=== PATIENT | male | born 1950 | race Caucasian/White ===

== ENCOUNTER 2018-01-07 16:44 | Inpatient (IN) | payer MEDICARE ==
[~2018-01-07] VITALS: Ht 162.6 cm; Wt 93.5 kg
[2018-01-07] VITALS (8 sets, daily range): BP systolic 117–204; BP diastolic 69–94; PULSE 80–91; RESP 15–20; TEMP 98.2–98.7; O2SAT 94–99
[2018-01-07] MEDS ORDERED: PLAV75TA29 PO (17:25)
[2018-01-07] MEDS ORDERED: METO25TA3 PO (17:25)
[2018-01-07] MEDS ORDERED: LIPI80TA PO (17:25)
--- NOTE | 2018-01-07 17:36 | RADRPT ---
EXAM DATE: 01/07/2018 5:22 PM EDT AGE/SEX: 67 years / Male INDICATIONS: Chest pain. CLINICAL DATA: This is the patient's initial encounter. Patient reports that signs and symptoms have been present for 1 day and indicates a pain score of 3/10. MEDICAL/SURGICAL HISTORY: None. None. None. COMPARISON: No prior exams available for comparison. FINDINGS: A single AP view of the chest demonstrates the lungs to be symmetrically aerated without evidence of mass, infiltrate or effusion. The cardiomediastinal contours are unremarkable. Osseous structures a re intact. CONCLUSION: No acute cardiopulmonary process. Electronically signed by: Nuno Sharpe MD 01/07/2018 5:35 PM EDT
--- NOTE | 2018-01-07 17:43 | PD ---
HPI Chief Complaint: Chest Pain Time Seen by Provider: 17:25 Travel History International Travel<30 days: No Contact w/Intl Traveler<30days: No Traveled to known affect area: No History of Present Illness HPI 67 years old male complains of chest pain. Patient states that he has intermittent chest discomfort substernally and across the anterior chest for the past few months. Patient states that he has increasing discomfort for the past 2 days. Patient states that the chest discomfort started this morning and lasted all day. Patient states that he took aspirin 325 mg today. Patient states that the chest discomfort is better now. Patient states that the chest discomfort is substernal chest pressure with radiation across the anterior chest down to both arms and upper back. Patient denies nausea diaphoresis. Patient denies palpitation. Patient has history of CAD status post stent placement 6 around 2007. Patient also has history hypertension, hyperlipidemia. Patient quit smoking in 2007. Patient was seen by local commercial litigation associate Dr. Gann in September 2017. Patient had chemical stress test done at that time which was normal. Patient states that the chest discomfort is not associate with exertion. Patient denies any coughing congestion fever chills. PFSH Past Medical History Hx Anticoagulant Therapy: Yes Cardiac Catheterization: Yes Cardiovascular Problems: Yes High Cholesterol: Yes Coronary Artery Disease: Yes Diabetes: No Patient Takes Glucophage: No Diminished Hearing: No Hypertension: Yes Tetanus Vaccination: Never Vaccinated Influenza Vaccination: No Past Surgical History Coronary Stent: Yes ( -2007) Social History Alcohol Use: Yes (RARELY) Tobacco Use: No (QUIT 2007) Substance Use: No Allergies-Medications (Allergen,Severity, Reaction): Coded Allergies: No Known Allergies (Unverified , 01/07/18) Reported Meds & Prescriptions Reported Meds & Active Scripts Active Reported Lipitor (Atorvastatin Calcium) 80 Mg Tab 80 Mg PO HS Metoprolol Tartrate 25 Mg Tab 25 Mg PO BID Plavix (Clopidogrel Bisulfate) 75 Mg Tab 75 Mg PO DAILY Review of Systems General / Constitutional: No: Fever Eyes: No: Visual changes HENT: No: Headaches Cardiovascular: Positive: Chest Pain or Discomfort Respiratory: No: Shortness of Breath Gastrointestinal: No: Abdominal Pain Genitourinary: No: Dysuria Musculoskeletal: No: Pain Skin: No Rash Neurologic: No: Weakness Psychiatric: No: Depression Endocrine: No: Polydipsia Hematologic/Lymphatic: No: Easy Bruising Physical Exam Narrative GENERAL: Well-nourished, well-developed patient. SKIN: Focused skin assessment warm/dry. HEAD: Normocephalic. EYES: No scleral icterus. No injection or drainage. NECK: Supple, trachea midline. No JVD or lymphadenopathy. CARDIOVASCULAR: Regular rate and rhythm without murmurs, gallops, or rubs. RESPIRATORY: Breath sounds equal bilaterally. No accessory muscle use. GASTROINTESTINAL: Abdomen soft, non-tender, nondistended. MUSCULOSKELETAL: No cyanosis, or edema. BACK: Nontender without obvious deformity. No CVA tenderness. Neurologic exam normal. Data Data Last Documented VS Vital Signs Date Time Temp Pulse Resp B/P (MAP) Pulse Ox O2 Delivery O2 Flow Rate FiO2 01/07/18 17:28 Room Air 01/07/18 17:26 97 2.00 01/07/18 17:15 81 18 173/85 (114) 01/07/18 16:46 98.2 Orders Orders Electrocardiogram (01/07/18 16:57) Complete Blood Count With Diff (01/07/18 16:57) Basic Metabolic Panel (Bmp) (01/07/18 16:57) Ckmb (Isoenzyme) Profile (01/07/18 16:57) Troponin I (01/07/18 16:57) Chest, Single Ap (01/07/18 16:57) Iv Access Insert/Monitor (01/07/18 16:57) Ecg Monitoring (01/07/18 16:57) Oxygen Administration (01/07/18 16:57) Oximetry (01/07/18 16:57) Labs Laboratory Tests Test 01/07/18 17:40 White Blood Count 11.2 TH/MM3 Red Blood Count 4.66 MIL/MM3 Hemoglobin 15.0 GM/DL Hematocrit 43.1 % Mean Corpuscular Volume 92.5 FL Mean Corpuscular Hemoglobin 32.2 PG Mean Corpuscular Hemoglobin Concent 34.8 % Red Cell Distribution Width 12.8 % Platelet Count 285 TH/MM3 Mean Platelet Volume 7.4 FL Neutrophils (%) (Auto) 79.3 % Lymphocytes (%) (Auto) 11.8 % Monocytes (%) (Auto) 8.1 % Eosinophils (%) (Auto) 0.4 % Basophils (%) (Auto) 0.4 % Neutrophils # (Auto) 8.9 TH/MM3 Lymphocytes # (Auto) 1.3 TH/MM3 Monocytes # (Auto) 0.9 TH/MM3 Eosinophils # (Auto) 0.0 TH/MM3 Basophils # (Auto) 0.0 TH/MM3 CBC Comment DIFF FINAL Differential Comment Blood Urea Nitrogen 9 MG/DL Creatinine 0.86 MG/DL Random Glucose 131 MG/DL Calcium Level 9.0 MG/DL Sodium Level 141 MEQ/L Potassium Level 4.0 MEQ/L Chloride Level 107 MEQ/L Carbon Dioxide Level 25.6 MEQ/L Anion Gap 8 MEQ/L Estimat Glomerular Filtration Rate 89 ML/MIN Total Creatine Kinase 62 U/L Troponin I LESS THAN 0.02 NG/ML MDM Medical Decision Making Medical Screen Exam Complete: Yes Emergency Medical Condition: Yes Interpretation(s) Last Impressions Chest X-Ray 01/07/18 1657 Signed Impressions: CONCLUSION: No acute cardiopulmonary process. 1834 PM. CBC within normal limits. BMP within normal limits. Cardiac enzymes are normal. Differential Diagnosis Differential diagnosis including angina, ME, PE, pneumothorax. Narrative Course 67 years old male with chest pain. History of CAD. Marvel Bruner MD Jan 07, 2018 17:43
[2018-01-07 18:01] LABS: AUTOMATED NEUTROPHIL # 8.9 TH/MM3 (1.8-7.7); BASOPHIL % 0.4 % (0.0-2.0); EOSINOPHIL % 0.4 % (0.0-4.0); HEMATOCRIT 43.1 % (39.0-51.0); LYMPH % 11.8 % (9.0-44.0); LYMPHOCYTE # 1.3 TH/MM3 (1.0-4.8); MEAN CELL VOLUME 92.5 FL (80.0-100.0); MEAN CORPUSCULAR HEMOGLOBIN 32.2 PG (27.0-34.0); MEAN CORPUSCULAR HGB CONC 34.8 % (32.0-36.0); MEAN PLATELET VOLUME 7.4 FL (7.0-11.0); MONO % 8.1 % (0.0-8.0); MONOCYTE # 0.9 TH/MM3 (0-0.9); NEUT % 79.3 % (16.0-70.0); PLATELET COUNT 285 TH/MM3 (150-450); RED BLOOD COUNT 4.66 MIL/MM3 (4.50-5.90); RED CELL DISTRIBUTION WIDTH 12.8 % (11.6-17.2); WHITE BLOOD COUNT 11.2 TH/MM3 (4.0-11.0)
[2018-01-07 18:24] LABS: BICARBONATE 25.6 MEQ/L (21.0-32.0); BLOOD UREA NITROGEN 9 MG/DL (7-18); CHLORIDE 107 MEQ/L (98-107); CREATININE 0.86 MG/DL (0.60-1.30); GLOMERULAR FILTRATION RATE 89 ML/MIN (>89); GLUCOSE,RANDOM 131 MG/DL (74-106); SODIUM (NA) 141 MEQ/L (136-145)
[2018-01-07 18:28] LABS: TROPONIN I LESS THAN 0.02 NG/ML (0.02-0.05)
[2018-01-07] MEDS ORDERED: HEPARIN SODIUM - IV 10,000 UNITS/10 ML VIAL IV ONE (19:00)
[2018-01-07] MEDS ORDERED: NITROGLYCERIN 2% OINT 1 GM PACKET TOPICAL ONE (19:00)
[2018-01-07] MEDS: HEPARIN-D5W 25,000 U/250 ML 250 ML IV PRN (19:30)
[2018-01-07] MEDS ORDERED: BISACODYL 10 MG SUPP RECTAL PRN (20:15)
[2018-01-07] MEDS ORDERED: LACTULOSE SYRUP 20 GM/30 ML CUP PO PRN (20:15)
[2018-01-07] MEDS ORDERED: MAGNESIUM HYDROXIDE SUSP 30 ML CUP PO PRN (20:15)
[2018-01-07] MEDS ORDERED: SENNOSIDES 8.6 MG TAB PO PRN (20:15)
[2018-01-07] MEDS ORDERED: ACETAMINOPHEN 325 MG TAB PO PRN (20:15)
[2018-01-07] MEDS ORDERED: SODIUM CHLORIDE 0.9% FLUSH 10 ML FLUSH IV FLUSH PRN (20:15)
[2018-01-07] MEDS ORDERED: NALOXONE HCL 0.4 MG/ML AMP IV PUSH PRN (20:15)
[2018-01-07] MEDS ORDERED: ECASA81 PO (20:18)
--- NOTE | 2018-01-07 20:22 | HHI.HP ---
[facility] Service Family Medicine Primary Care Physician Nuno King MD Admission Diagnosis Chest pain Diagnoses: Chief Complaint: Chest pain/pressure International Travel<30 Days: No Contact w/Intl Traveler<30days: No Known Affected Area: No History of Present Illness 67-year-old male with past medical history of coronary artery disease status post stenting 6 in 2007 presenting with a 2 day history of chest pressure acutely increasing earlier this afternoon. Chest pressure is substernal, severe , radiating to the bilateral arms. Resolved with aspirin and Nitropaste given on route to ER and in the emergency room. No shortness of breath, lower extremity edema. Other than chest pressure, which is now resolved, he feels his usual state of health. (Iggy Calvin MD R2) Review of Systems Constitutional: DENIES: Fever, Chills Endocrine: DENIES: Heat/cold intolerance Eyes: DENIES: Vision loss Ears, nose, mouth, throat: DENIES: Throat pain, Ear Pain, Sinus Pain Respiratory: DENIES: Cough, Shortness of breath Cardiovascular: COMPLAINS OF: Chest pain, Dyspnea on Exertion, DENIES: Palpitations, Lower Extremity Edema Gastrointestinal: DENIES: Abdominal pain, Constipation, Diarrhea, Nausea, Vomiting Genitourinary: DENIES: Urinary frequency, Dysuria Musculoskeletal: DENIES: Joint pain, Muscle aches Integumentary: DENIES: Rash Hematologic/lymphatic: DENIES: Bruising Immunologic/allergic: DENIES: Eczema Neurologic: DENIES: Abnormal gait, Tremor Psychiatric: DENIES: Anxiety, Depression (Iggy Calvin MD R2) Past Family Social History Past Medical History CAD - s/p stenting x6 in 2007 Past Surgical History Tonsillectomy in childhood Reported Medications Reported Meds & Active Scripts Active Reported Aspirin DR (Aspirin) 81 Mg Tabdr 81 Mg PO DAILY Lipitor (Atorvastatin Calcium) 80 Mg Tab 80 Mg PO HS Metoprolol Tartrate 25 Mg Tab 25 Mg PO BID Plavix (Clopidogrel Bisulfate) 75 Mg Tab 75 Mg PO DAILY (Iggy Calvin MD R2) Allergies: Coded Allergies: No Known Allergies (Unverified , 01/07/18) Active Ordered Medications Current Medications Medications (Trade) Dose Ordered Sig/Shira Route Start Time Stop Time Status Last Admin Heparin Sodium/ Dextrose 250 ml @ 10 mls/hr TITRATE PRN IV 01/07/18 19:00 01/07/18 19:30 (NS Flush) 2 ml UNSCH PRN IV FLUSH 01/07/18 20:15 (NS Flush) 2 ml BID IV FLUSH 01/07/18 21:00 (Tylenol) 650 mg Q4H PRN PO 01/07/18 20:15 (Narcan Inj) 0.4 mg UNSCH PRN IV PUSH 01/07/18 20:15 (Rivka-Colace) 1 tab BID PO 01/07/18 21:00 (Milk Of Magnesia Liq) 30 ml Q12H PRN PO 01/07/18 20:15 (Senokot) 17.2 mg Q12H PRN PO 01/07/18 20:15 (Dulcolax Supp) 10 mg DAILY PRN RECTAL 01/07/18 20:15 (Lactulose Liq) 30 ml DAILY PRN PO 01/07/18 20:15 (Morphine Inj) 4 mg Q3H PRN IV PUSH 01/07/18 20:30 (Lipitor) 80 mg HS PO 01/07/18 21:00 (Plavix) 75 mg DAILY PO 01/08/18 09:00 (Lopressor) 25 mg BID PO 01/07/18 21:00 (Ecotrin Ec) 81 mg DAILY PO 01/08/18 09:00 Family History Non-contributory Social History Tob - Quit 2007; formerly 39 years of smoking 1 PPD Alc - None Drugs - none Served in the [place] Lives with (Iggy Calvin MD R2) Physical Exam Vital Signs Vital Signs Date Time Temp Pulse Resp B/P (MAP) Pulse Ox O2 Delivery O2 Flow Rate FiO2 01/07/18 19:12 80 18 175/84 (114) 97 Room Air 01/07/18 17:28 Room Air 01/07/18 17:26 97 Nasal Cannula 2.00 01/07/18 17:15 81 18 173/85 (114) 97 Room Air 01/07/18 16:46 98.2 80 15 204/94 (130) 97 Physical Exam GENERAL: WDWN adult white male, NAD SKIN: No rashes, ecchymoses or lesions. Cool and dry. HEAD: NC/AT EYES: PERRL. EOMI. No conjunctival injection or drainage. ENT: MMM, OP without erythema, tonsillar swelling, or exudate. NECK: Supple. No JVD. CARDIOVASCULAR: NRRR. Normal S1/S2. No MRG. No carotid bruit. RESPIRATORY: CTAB. No crackles or wheezes. GASTROINTESTINAL: Abdomen soft, non-distended, non-tender. No hepato- splenomegaly or palpable masses. MUSCULOSKELETAL: Extremities without clubbing, cyanosis, or edema. NEUROLOGICAL: Awake and alert. Cranial nerves II through XII grossly intact. Moves all extremities without difficulty. Normal speech. Laboratory Laboratory Tests Test 01/07/18 17:40 01/07/18 19:37 White Blood Count 11.2 Red Blood Count 4.66 Hemoglobin 15.0 Hematocrit 43.1 Mean Corpuscular Volume 92.5 Mean Corpuscular Hemoglobin 32.2 Mean Corpuscular Hemoglobin Concent 34.8 Red Cell Distribution Width 12.8 Platelet Count 285 Mean Platelet Volume 7.4 Neutrophils (%) (Auto) 79.3 Lymphocytes (%) (Auto) 11.8 Monocytes (%) (Auto) 8.1 Eosinophils (%) (Auto) 0.4 Basophils (%) (Auto) 0.4 Neutrophils # (Auto) 8.9 Lymphocytes # (Auto) 1.3 Monocytes # (Auto) 0.9 Eosinophils # (Auto) 0.0 Basophils # (Auto) 0.0 CBC Comment DIFF FINAL Differential Comment Blood Urea Nitrogen 9 Creatinine 0.86 Random Glucose 131 Calcium Level 9.0 Sodium Level 141 Potassium Level 4.0 Chloride Level 107 Carbon Dioxide Level 25.6 Anion Gap 8 Estimat Glomerular Filtration Rate 89 Total Creatine Kinase 62 Troponin I LESS THAN 0.02 Activated Partial Thromboplast Time 24.5 (Iggy Calvin MD R2) Result Diagram: 01/07/18 1740 01/07/18 1740 Imaging Last Impressions Chest X-Ray 01/07/18 1657 Signed Impressions: CONCLUSION: No acute cardiopulmonary process. (Iggy Calvin MD R2) Caprini VTE Risk Assessment Caprini VTE Risk Assessment: Mod/High Risk (score >= 2) (Iggy Calvin MD R2) Assessment and Plan Assessment and Plan 67 yo with h/o CAD presenting with: (Iggy Calvin MD R2) Attending Attestation THIS CASE WAS DISCUSSED WITH THE RESIDENT PHYSICIANS. I HAVE REVIEWED THE RECORD AND AGREE WITH THE ABOVE NOTE AND PLAN OF CARE WAS DISCUSSED. I HAVE AUTHORIZED THE ORDER FOR ADMISSION TO AN IN-PATIENT STATUS. (Ok Chand MD) Problem List: (1) Chest pain ICD Codes: R07.9 - Chest pain, unspecified Status: Acute Plan: CP likely unstable angina Initial troponin negative EKG = NSR, no ST-T wave changes -Cardiology consulted, appreciate recs (follows with [facility]) Trend troponin, EKG Heparin drip Likely cath in the morning -Nitro paste -Oxygen -Continue home ASA, Plavix, BB, statin -Check fasting glucose to r/o DM (2) CAD (coronary artery disease) ICD Codes: I25.10 - Atherosclerotic heart disease of [place] coronary artery without angina pectoris Plan: See above plan (3) FEN/PPX Plan: Fluids: PO only Elecs: Replete PRN Nutrition: Diet regular basic DVT: On heparin drip Code status: FULL CODE Dispo: Admit to inpatient. Pending cariology recs. Earliest tomorrow PM. (Iggy Calvin MD R2) Physician Certification 2 Midnight Certification Type: Admission for Inpatient Services Order for Inpatient Services The services are ordered in accordance with Medicare regulations or non- Medicare payer requirements, as applicable. In the case of services not specified as inpatient-only, they are appropriately provided as inpatient services in accordance with the 2-midnight benchmark. Estimated LOS (days): 2 days is the estimated time the patient will need to remain in the hospital, assuming treatment plan goals are met and no additional complications. Post-Hospital Plan: Home (Iggy Calvin MD R2) Problem Qualifiers (1) Chest pain: Qualified Codes: I20.0 - Unstable angina (2) CAD (coronary artery disease): Qualified Codes: I25.110 - Atherosclerotic heart disease of [place] coronary artery with unstable angina pectoris Iggy Calvin MD R2 Jan 07, 2018 20:21 Ok Chand MD Jan 09, 2018 09:37
[2018-01-07] MEDS: ATORVASTATIN 80 MG TAB PO SCH (21:35)
[2018-01-07] MEDS: METOPROLOL TARTRATE 25 MG TAB PO SCH (21:35)
[2018-01-07] MEDS: SODIUM CHLORIDE 0.9% FLUSH 10 ML FLUSH IV FLUSH SCH (21:35)
[2018-01-07] MEDS: DOCUSATE SODIUM 50 MG/SENNA 8.6 MG TAB PO SCH (21:35)
[2018-01-08] VITALS (28 sets, daily range): BP systolic 105–157; BP diastolic 51–84; PULSE 64–89; RESP 15–20; TEMP 98.2–99; O2SAT 80–96
[2018-01-08 02:26] LABS: TROPONIN I 0.18 NG/ML (0.02-0.05)
[2018-01-08] MEDS: METOPROLOL TARTRATE 25 MG TAB PO SCH ×2 (08:19→20:22)
[2018-01-08] MEDS: CLOPIDOGREL 75 MG TAB PO SCH (08:19)
[2018-01-08] MEDS: ASPIRIN EC 81 MG TABEC PO SCH (08:19)
[2018-01-08] MEDS: SODIUM CHLORIDE 0.9% FLUSH 10 ML FLUSH IV FLUSH SCH ×2 (08:20→20:22)
[2018-01-08] MEDS: DOCUSATE SODIUM 50 MG/SENNA 8.6 MG TAB PO SCH ×2 (08:22→20:22)
[2018-01-08] MEDS ORDERED: PNEUMOCOCCAL POLYVALENT INJ 25 MCG/0.5 ML SYR IM ONE (09:00)
[2018-01-08] MEDS ORDERED: INFLUENZA VIRUS VACCINE (QUADRIVALENT) 0.5 ML SYR IM ONE (09:00)
--- NOTE | 2018-01-08 09:32 | MB ---
cc: Carlitos Falcon MD DATE: 01/08/2018 REASON FOR CONSULTATION: Non-ST elevation myocardial infarction. HISTORY OF PRESENT ILLNESS: The patient is a very pleasant 67-year-old gentleman who sees my partner, Dr. Gann for a history of coronary artery disease with a history of 6 stents. The patient says his last catheterization was about 2009. The patient says in the past he has had some typical angina, though stable, that would bother him only during his exertional activities, but would be relieved at rest. Yesterday, he was moving to a different home and he began having chest pain during the move, but it persisted and actually increased once he had finished his move. He says at worst his pain was 7/10, which was quite a bit worse than usual for him. The pain was a pressure in his upper chest, radiating to his neck and back. He presented to the emergency department and was started on heparin and nitro paste, and he is feeling better with now only 0.5/10 chest discomfort. His initial troponin was negative, but it has slowly trended upwards. Again, currently he is essentially asymptomatic with only a trace of his initial chest pain. PAST MEDICAL HISTORY: Coronary artery disease, status post multiple prior stents (6 per patient). CURRENT MEDICATIONS: 1. Plavix 75 mg daily. 2. Aspirin 81 mg daily. 3. Lipitor 80 mg daily. 4. Lopressor 25 mg b.i.d. ALLERGIES: NO KNOWN DRUG ALLERGIES. PHYSICAL EXAMINATION: VITAL SIGNS: Afebrile, pulse 71, respiratory rate 20, BP 105/51, saturating 94% on room air. GENERAL: Pleasant, well-appearing gentleman in no distress. NECK: No JVD. LUNGS: Clear to auscultation bilaterally. CARDIOVASCULAR: Regular rate and rhythm. No murmurs appreciated. ABDOMEN: Benign. EXTREMITIES: No edema. LABORATORY DATA: Sodium 141, potassium 4.0, chloride 107, bicarbonate 25.6, BUN 9, creatinine 0.86, glucose 131. Troponin 0.020, 0.080, 0.18. White count of 11.2, hematocrit 43.1, platelets 285. EKG shows sinus rhythm with no acute ST or T-wave changes. IMPRESSION: Non-ST elevation myocardial infarction. The patient had quite classic unstable angina/acute coronary syndrome symptoms with a mildly elevated troponin. Given his notable coronary artery disease, he will require a cardiac catheterization and Dr. Gann should be available for this on Wednesday. In the meanwhile, I will medically treat him over the weekend. Should his clinical condition change and he become more unstable or his chest pain recur to any notable degree, this could be done on a more urgent basis. He is already on a heparin drip, aspirin, beta remington and statin. Plavix will be continued for now. Further recommendations based on his clinical course. Thank you again for the opportunity to participate in the patient's care. MD JEFF Padilla/FADIA , 09:09 AM , 09:31 AM
--- NOTE | 2018-01-08 12:57 | HHI.FPPN ---
Subjective Remarks Vitals are stable overnight. No acute events. On heparin drip. No current chest pain or shortness of breath. Plan for cath on Wednesday. (Melisa Moses MD R1) Objective Vitals Vital Signs Date Time Temp Pulse Resp B/P (MAP) Pulse Ox O2 Delivery O2 Flow Rate FiO2 01/08/18 12:00 78 01/08/18 11:00 98.3 73 18 132/71 (91) 96 01/08/18 11:00 74 01/08/18 10:00 78 01/08/18 09:00 70 01/08/18 09:00 64 01/08/18 08:00 74 01/08/18 08:00 67 01/08/18 07:00 98.2 81 18 138/69 (92) 95 01/08/18 07:00 75 01/08/18 06:00 71 01/08/18 05:00 74 01/08/18 04:08 94 01/08/18 04:00 78 01/08/18 03:00 75 01/08/18 03:00 98.4 83 20 105/51 (69) 92 01/08/18 02:00 74 01/08/18 01:00 75 01/08/18 00:00 80 01/07/18 23:59 81 01/07/18 23:43 98.7 87 20 117/70 (86) 94 01/07/18 23:41 86 18 121/69 (86) 97 Room Air 01/07/18 23:40 01/07/18 23:00 90 18 134/80 (98) 97 Room Air 01/07/18 21:47 91 18 146/80 (102) 99 Room Air 01/07/18 19:12 80 18 175/84 (114) 97 Room Air 01/07/18 17:28 Room Air 01/07/18 17:26 97 Nasal Cannula 2.00 01/07/18 17:15 81 18 173/85 (114) 97 Room Air 01/07/18 16:46 98.2 80 15 204/94 (130) 97 I/O 01/07/18 01/07/18 01/07/18 01/08/18 01/08/18 01/08/18 07:00 15:00 23:00 07:00 15:00 23:00 Intake Total 70 ml Balance 70 ml Intake Oral 0 ml IV Total 70 ml # Voids 0 # Bowel Movements 0 (Melisa Moses MD R1) Result Diagram: 01/07/18173901/07/181739 Objective Remarks O. CONSTITUTIONAL/GEN: Overweight white gentleman no acute distress. EYES: PERRLA, EOMI. ENT: Mouth and pharynx normal. NECK: thyroid midline. LUNGS: clear A-P, respiratory effort is normal. CARDIOVASCULAR: RR without murmur or gallop. GI/ABD: Soft, no distention. NEURO: No focal deficits. Gait is normal SKIN: color normal, no rashes noted. MUSC: Extremities are normal in appearance. PSYCH/MENTAL STATUS: Alert, cooperative, conversant. (Melisa Moses MD R1) A/P Assessment and Plan 67 yo with h/o CAD presenting with chest pain, admitted for suspicion of non-ST elevation OK. Cardiology consulted. Plan is to medically managed with heparin and undergo cardiac catheterization on Wednesday. Discharge Planning Discharge pending cardiology recommendations, after cardiac cath (Melisa Moses MD R1) Attending Attestation Patient seen and examined. Patient with known CAD presenting with substernal chest pain. Mild elevation of troponins. No significant EKG changes. Case reviewed and discussed with the resident team. Agree with plan of care as discussed with me and documented in the resident note. (Ok Chand MD) Problem List: (1) Chest pain ICD Codes: R07.9 - Chest pain, unspecified Status: Acute Plan: EKG shows no ST changes Troponin mildly elevated History of 12/26 and previous catheterization (2009), has typical angina Stable -Cardiology consulted, appreciate recs (follows with [facility]) -On heparin drip -Continue home ASA, Plavix, BB, statin (2) CAD (coronary artery disease) ICD Codes: I25.10 - Atherosclerotic heart disease of [place] coronary artery without angina pectoris Plan: See above plan (3) FEN/PPX Plan: Fluids: PO only Elecs: Replete PRN Nutrition: Diet regular basic DVT: On heparin drip (Melisa Moses MD R1) Problem Qualifiers (1) Chest pain: Qualified Codes: I20.0 - Unstable angina (2) CAD (coronary artery disease): Qualified Codes: I25.110 - Atherosclerotic heart disease of [place] coronary artery with unstable angina pectoris Melisa Moses MD R1 Jan 08, 2018 12:57 Ok Chand MD Jan 09, 2018 10:01
--- NOTE | 2018-01-08 15:12 | EKG ---
Date Performed: 01/07/2018 Time Performed: 17:00:22 PTAGE: 67 years EKG: Sinus rhythm POSSIBLE LEFT ATRIAL ENLARGEMENT POSSIBLE RIGHT VENTRICULAR CONDUCTION DELAY MINIMAL ST DEPRESSION B ORDERLINE ECG NO PREVIOUS TRACING DOCTOR: Aiden Camacho Interpretating Date/Time 01/10/2018 06:46:17
[2018-01-08] MEDS: HEPARIN-D5W 25,000 U/250 ML 250 ML IV PRN (17:45)
[2018-01-08] MEDS: MORPHINE SULFATE 4 MG/ML INJ IV PUSH PRN (17:50)
--- NOTE | 2018-01-08 17:54 | EKG ---
Date Performed: 01/08/2018 Time Performed: 01:35:54 PTAGE: 67 years EKG: Sinus rhythm Normal ECG PREVIOUS TRACING : 01/07/2018 21.44 Compared to previous tracing, left atrial abnormality resol poly. DOCTOR: Aiden Camacho Interpretating Date/Time 01/08/2018 17:52:37
--- NOTE | 2018-01-08 17:54 | EKG ---
Date Performed: 01/07/2018 Time Performed: 21:44:07 PTAGE: 67 years EKG: Sinus rhythm POSSIBLE LEFT ATRIAL ENLARGEMENT POSSIBLE RIGHT VENTRICULAR CONDUCTION DELAY BORDERLINE ECG ST jeff[place] es are slightly better from prior tracing. PREVIOUS TRACING : 01/07/2018 17.00 DOCTOR: Aiden Camacho Interpretating Date/Time 01/08/2018 17:51:55
[2018-01-08] MEDS: ATORVASTATIN 80 MG TAB PO SCH (20:22)
[2018-01-09] VITALS (28 sets, daily range): BP systolic 129–175; BP diastolic 70–91; PULSE 66–102; RESP 15–20; TEMP 98–98.6; O2SAT 93–95
[2018-01-09] MEDS: MORPHINE SULFATE 4 MG/ML INJ IV PUSH PRN ×3 (01:21→08:27)
[2018-01-09] MEDS: ASPIRIN EC 81 MG TABEC PO SCH (08:15)
[2018-01-09] MEDS: DOCUSATE SODIUM 50 MG/SENNA 8.6 MG TAB PO SCH ×2 (08:16→21:08)
[2018-01-09] MEDS: SODIUM CHLORIDE 0.9% FLUSH 10 ML FLUSH IV FLUSH SCH ×2 (08:16→21:00)
[2018-01-09] MEDS: METOPROLOL TARTRATE 25 MG TAB PO SCH ×2 (08:16→21:08)
[2018-01-09] MEDS: CLOPIDOGREL 75 MG TAB PO SCH (08:16)
--- NOTE | 2018-01-09 09:34 | PD.CARD.PN ---
Subjective Subjective Remarks pt still c/o cp off and on, relieved by ntg and/or morphine Objective Medications Current Medications Medications (Trade) Dose Ordered Sig/Shira Route Start Time Stop Time Status Last Admin Heparin Sodium/ Dextrose 250 ml @ 10 mls/hr TITRATE PRN IV 01/07/18 19:00 01/08/18 17:45 (NS Flush) 2 ml UNSCH PRN IV FLUSH 01/07/18 20:15 (NS Flush) 2 ml BID IV FLUSH 01/07/18 21:00 01/09/18 08:16 (Tylenol) 650 mg Q4H PRN PO 01/07/18 20:15 (Narcan Inj) 0.4 mg UNSCH PRN IV PUSH 01/07/18 20:15 (Rivka-Colace) 1 tab BID PO 01/07/18 21:00 01/09/18 08:16 (Milk Of Magnesia Liq) 30 ml Q12H PRN PO 01/07/18 20:15 (Senokot) 17.2 mg Q12H PRN PO 01/07/18 20:15 (Dulcolax Supp) 10 mg DAILY PRN RECTAL 01/07/18 20:15 (Lactulose Liq) 30 ml DAILY PRN PO 01/07/18 20:15 (Morphine Inj) 4 mg Q3H PRN IV PUSH 01/07/18 20:30 01/09/18 08:27 (Lipitor) 80 mg HS PO 01/07/18 21:00 01/08/18 20:22 (Plavix) 75 mg DAILY PO 01/08/18 09:00 01/09/18 08:16 (Lopressor) 25 mg BID PO 01/07/18 21:00 01/09/18 08:16 (Ecotrin Ec) 81 mg DAILY PO 01/08/18 09:00 01/09/18 08:15 Vital Signs / I&O Vital Signs Date Time Temp Pulse Resp B/P (MAP) Pulse Ox O2 Delivery O2 Flow Rate FiO2 01/09/18 08:32 18 01/09/18 08:15 98.0 80 18 154/81 (105) 93 01/09/18 08:00 96 01/09/18 07:04 68 01/09/18 06:30 74 01/09/18 05:00 74 01/09/18 04:13 84 01/09/18 04:00 129/83 (98) 01/09/18 03:16 98.6 77 15 162/84 (110) 94 01/09/18 03:00 68 01/09/18 02:00 66 01/09/18 01:00 76 01/09/18 00:00 74 01/08/18 23:29 98.8 78 15 146/84 (104) 94 01/08/18 23:00 73 01/08/18 22:00 70 01/08/18 21:00 76 01/08/18 20:55 21 01/08/18 20:00 80 01/08/18 19:17 99.0 80 18 157/73 (101) 94 01/08/18 19:00 75 01/08/18 18:00 82 01/08/18 17:00 85 01/08/18 16:00 79 01/08/18 15:02 98.3 72 18 131/72 (91) 95 01/08/18 15:00 70 01/08/18 14:00 89 01/08/18 13:00 71 01/08/18 12:00 78 01/08/18 11:00 98.3 73 18 132/71 (91) 96 01/08/18 11:00 74 01/08/18 10:00 78 I/O 01/08/18 01/08/18 01/08/18 01/09/18 01/09/18 01/09/18 07:00 15:00 23:00 07:00 15:00 23:00 Intake Total 70 ml 1432 ml 550 ml Output Total 975 ml 1100 ml Balance 70 ml 457 ml -550 ml Intake Oral 0 ml 1210 ml 550 ml IV Total 70 ml 222 ml Output Urine Total 975 ml 1100 ml # Voids 0 # Bowel Movements 0 0 Physical Exam GENERAL: This is a well-nourished, well-developed patient, in no apparent distress. CARDIOVASCULAR: Regular rate and rhythm without murmurs, gallops, or rubs. RESPIRATORY: Clear to auscultation. Breath sounds equal bilaterally. No wheezes , rales, or rhonchi. GASTROINTESTINAL: Abdomen soft, non-tender, nondistended. Normal active bowel sounds MUSCULOSKELETAL: Extremities without clubbing, cyanosis, or edema. NEURO: Alert & Oriented x4 to person, place, time, situation. Moves all ext x4 Laboratory Laboratory Tests Test 01/09/18 04:39 Activated Partial Thromboplast Time 46.7 SEC Imaging Last Impressions Chest X-Ray 01/07/18 1977 Signed Impressions: CONCLUSION: No acute cardiopulmonary process. Assessment and Plan Problem List: (1) Chest pain ICD Codes: R07.9 - Chest pain, unspecified Status: Acute Plan: on heparin ggt, added nitro ggt.; for cath tomorrow by Dr. rodriguez (2) CAD (coronary artery disease) ICD Codes: I25.10 - Atherosclerotic heart disease of [place] coronary artery without angina pectoris Plan: continue medical mgt. Problem Qualifiers (1) Chest pain: Qualified Codes: I20.0 - Unstable angina (2) CAD (coronary artery disease): Qualified Codes: I25.110 - Atherosclerotic heart disease of [place] coronary artery with unstable angina pectoris Carlitos Falcon MD Jan 09, 2018 09:34
[2018-01-09] MEDS ORDERED: NITROGLYCERIN-D5W 50 MG/250 ML 250 ML IV PRN (09:45)
--- NOTE | 2018-01-09 16:13 | HHI.FPPN ---
Subjective Remarks 67 yo with history of CAD admitted for ACS. Overnight had more chest pain worsened by exertion, incompletely relieved by morphine. NTG drip resumed, CP resolved. Today feels well. No current CP/SOB. Tolerating diet. (Iggy Calvin MD R2) Objective Vitals Vital Signs Date Time Temp Pulse Resp B/P (MAP) Pulse Ox O2 Delivery O2 Flow Rate FiO2 01/09/18 15:18 98.0 74 18 145/70 (95) 95 01/09/18 15:00 78 01/09/18 14:00 75 01/09/18 13:00 84 01/09/18 12:00 88 01/09/18 11:05 98.6 76 16 148/79 (102) 95 01/09/18 11:00 75 01/09/18 10:10 73 158/80 01/09/18 10:00 88 01/09/18 09:00 76 01/09/18 08:32 18 01/09/18 08:15 98.0 80 18 154/81 (105) 93 01/09/18 08:00 96 01/09/18 07:04 68 01/09/18 06:30 74 01/09/18 05:00 74 01/09/18 04:13 84 01/09/18 04:00 129/83 (98) 01/09/18 03:16 98.6 77 15 162/84 (110) 94 01/09/18 03:00 68 01/09/18 02:00 66 01/09/18 01:00 76 01/09/18 00:00 74 01/08/18 23:29 98.8 78 15 146/84 (104) 94 01/08/18 23:00 73 01/08/18 22:00 70 01/08/18 21:00 76 01/08/18 20:55 21 01/08/18 20:00 80 01/08/18 19:17 99.0 80 18 157/73 (101) 94 01/08/18 19:00 75 01/08/18 18:00 82 01/08/18 17:00 85 I/O 01/08/18 01/08/18 01/08/18 01/09/18 01/09/18 01/09/18 07:00 15:00 23:00 07:00 15:00 23:00 Intake Total 70 ml 1432 ml 550 ml Output Total 975 ml 1100 ml Balance 70 ml 457 ml -550 ml Intake Oral 0 ml 1210 ml 550 ml IV Total 70 ml 222 ml Output Urine Total 975 ml 1100 ml # Voids 0 # Bowel Movements 0 0 (Iggy Calvin MD R2) Result Diagram: 01/07/18 1740 01/07/18 1740 Objective Remarks CONSTITUTIONAL/GEN: Overweight white gentleman no acute distress. LUNGS: clear A-P, respiratory effort is normal. CARDIOVASCULAR: NRRR without murmur or gallop. GI/ABD: Soft, no distention. NEURO: Grossly non-focal SKIN: color normal, no rashes noted. MUSC: Extremities are normal in appearance. PSYCH/MENTAL STATUS: Alert, cooperative, conversant. (Iggy Calvin MD R2) A/P Assessment and Plan 67 yo with h/o CAD presenting with: (Iggy Calvin MD R2) Attending Attestation Case reviewed and discussed with the resident team. Agree with plan of care as discussed with me and documented in the resident note. (Ok Chand MD) Problem List: (1) ACS (acute coronary syndrome) ICD Codes: I24.9 - Acute ischemic heart disease, unspecified Plan: With troponin elevation, likely NSTEMI vs UA. In any case ACS diagnosis established Asymptomatic at present with no active chest pain EKG shows no ST-T wave changes TnI: < 0.02 --- 0.08 --- 0.18 History of 12/26 and previous catheterization (2009), had typical angina -Cardiology consulted, appreciate recs (follows with [facility]) -continue heparin drip, nitro drip -plan for cath on 01/10 -Continue home ASA, Plavix, BB, statin -Morphine PRN for chest pain (2) Chest pain ICD Codes: R07.9 - Chest pain, unspecified Status: Acute Plan: See above plan (3) CAD (coronary artery disease) ICD Codes: I25.10 - Atherosclerotic heart disease of [place] coronary artery without angina pectoris Plan: See above plan (4) FEN/PPX Plan: Fluids: PO only Elecs: Replete PRN Nutrition: Diet regular basic DVT: On heparin drip Dispo: Likely D/C home 01/10 or 01/11 depending on results of cath (Iggy Calvin MD R2) Problem Qualifiers (1) Chest pain: Qualified Codes: I20.0 - Unstable angina (2) CAD (coronary artery disease): Qualified Codes: I25.110 - Atherosclerotic heart disease of [place] coronary artery with unstable angina pectoris Iggy Calvin MD R2 Jan 09, 2018 16:13 Ok Chand MD Jan 09, 2018 18:26
[2018-01-09] MEDS: HEPARIN-D5W 25,000 U/250 ML 250 ML IV PRN (16:31)
[2018-01-09] MEDS: ATORVASTATIN 80 MG TAB PO SCH (21:08)
[2018-01-10] VITALS (25 sets, daily range): BP systolic 110–178; BP diastolic 66–85; PULSE 68–95; RESP 18; TEMP 98–98.9; O2SAT 94–98
[2018-01-10] MEDS: METOPROLOL TARTRATE 25 MG TAB PO SCH ×2 (08:21→20:19)
[2018-01-10] MEDS: SODIUM CHLORIDE 0.9% FLUSH 10 ML FLUSH IV FLUSH SCH ×2 (08:21→20:19)
[2018-01-10] MEDS: ASPIRIN EC 81 MG TABEC PO SCH (08:21)
[2018-01-10] MEDS: DOCUSATE SODIUM 50 MG/SENNA 8.6 MG TAB PO SCH ×2 (08:21→16:46)
[2018-01-10] MEDS ORDERED: LIDOCAINE HCL 1% PF 30 ML VIAL ONE (11:25)
[2018-01-10] MEDS ORDERED: HEPARIN-NS/PF INJ 1,000 ML ONE (11:26)
[2018-01-10] MEDS ORDERED: MIDAZOLAM HCL 2 MG/2 ML VIAL ONE (11:26)
[2018-01-10] MEDS ORDERED: NITROGLYCERIN INJ 5 ML ONE (11:26)
[2018-01-10] MEDS ORDERED: VERAPAMIL HCL 5 MG/2 ML VIAL ONE (11:26)
[2018-01-10] MEDS ORDERED: HEPARIN SODIUM - IV 10,000 UNITS/10 ML VIAL ONE (11:26)
[2018-01-10] MEDS ORDERED: CLOPIDOGREL 300 MG TAB ONE (12:11)
[2018-01-10] MEDS ORDERED: SODIUM CHLOR 0.9% 1000 ML INJ 1,000 ML IV SCH (12:31)
[2018-01-10] MEDS ORDERED: ONDANSETRON HCL 4 MG/2 ML VIAL IVP PRN (12:45)
[2018-01-10] MEDS ORDERED: MISC INFORMATION XX ONE (12:45)
[2018-01-10] MEDS ORDERED: IOHEXOL 350 MG/ML 50 ML BTL (for Cath Lab) OTHER ONE (13:13)
[2018-01-10] MEDS ORDERED: IOHEXOL 350 MG/ML 100 ML BTL (for Cath Lab) OTHER ONE (13:13)
--- NOTE | 2018-01-10 13:52 | HHI.FPPN ---
Subjective Remarks Vitals stable overnight Adequate intake and output Denies chest pain, shortness of breath, problems with urination/bowel movements Patient states that he is ready for cardiac cath today (Melisa Moses MD R1) Objective Vitals Vital Signs Date Time Temp Pulse Resp B/P (MAP) Pulse Ox O2 Delivery O2 Flow Rate FiO2 01/10/18 13:11 68 01/10/18 11:29 98.0 82 18 140/83 (102) 95 01/10/18 11:29 73 01/10/18 10:14 77 01/10/18 09:49 95 21 01/10/18 09:20 80 01/10/18 08:01 83 01/10/18 07:56 98.1 80 18 143/85 (104) 95 01/10/18 07:56 72 01/10/18 06:00 86 01/10/18 05:00 72 01/10/18 04:00 78 01/10/18 04:00 98.1 73 18 110/66 (81) 95 01/10/18 03:00 70 01/10/18 02:00 68 01/10/18 01:00 70 01/10/18 00:00 76 01/10/18 00:00 98.4 78 18 143/76 (98) 94 01/09/18 23:00 84 01/09/18 22:00 84 01/09/18 21:32 21 01/09/18 21:00 102 01/09/18 20:00 98.6 91 20 175/91 (119) 94 01/09/18 20:00 82 01/09/18 18:00 84 01/09/18 17:00 95 01/09/18 16:17 80 132/80 01/09/18 16:00 77 01/09/18 15:18 98.0 74 18 145/70 (95) 95 01/09/18 15:00 78 01/09/18 14:00 75 I/O 01/09/18 01/09/18 01/09/18 01/10/18 01/10/18 01/10/18 07:00 15:00 23:00 07:00 15:00 23:00 Intake Total 550 ml 720 ml 320 ml Output Total 1100 ml 675 ml 600 ml Balance -550 ml 45 ml -280 ml Intake Oral 550 ml 720 ml 320 ml Output Urine Total 1100 ml 675 ml 600 ml # Bowel Movements 0 (Melisa Moses MD R1) Result Diagram: 01/07/18 1740 01/07/18 174 Objective Remarks CONSTITUTIONAL/GEN: Overweight white gentleman no acute distress. LUNGS: clear A-P, respiratory effort is normal. CARDIOVASCULAR: NRRR without murmur or gallop. GI/ABD: Soft, no distention. NEURO: Grossly non-focal SKIN: color normal, no rashes noted. MUSC: Extremities are normal in appearance, no edema PSYCH/MENTAL STATUS: Alert, cooperative, conversant. (Melisa Moses MD R1) A/P Assessment and Plan 67 yo with h/o CAD presenting with: Discharge Planning Home tomorrow (Melisa Moses MD R1) Attending Attestation Case reviewed and discussed with the resident team. Agree with plan of care as discussed with me and documented in the resident note. (Ok Chand MD) Problem List: (1) ACS (acute coronary syndrome) ICD Codes: I24.9 - Acute ischemic heart disease, unspecified Plan: With troponin elevation, likely NSTEMI History of 12/26 and previous catheterization (2009), had typical angina -Cardiology consulted, appreciate recs (follows with [facility]) -on heparin drip, nitro drip -plan for cath today -Continue home ASA, Plavix, BB, statin (2) Chest pain ICD Codes: R07.9 - Chest pain, unspecified Status: Resolved Plan: See above plan (3) CAD (coronary artery disease) ICD Codes: I25.10 - Atherosclerotic heart disease of [place] coronary artery without angina pectoris Status: Chronic Plan: See above plan (4) FEN/PPX Plan: Fluids: PO only Elecs: Replete PRN Nutrition: Heart healthy diet DVT: Resume plavix tomorrow (Melisa Moses MD R1) Problem Qualifiers (1) Chest pain: Qualified Codes: I20.0 - Unstable angina (2) CAD (coronary artery disease): Qualified Codes: I25.110 - Atherosclerotic heart disease of [place] coronary artery with unstable angina pectoris Melisa Moses MD R1 Jan 10, 2018 13:52 Ok Chand MD Jan 11, 2018 07:36
--- NOTE | 2018-01-10 16:55 | ECHRPT ---
Indication: NSTEMI CONCLUSIONS Normal left ventricular size. Mild concentric left ventricular hypertrophy. The left ventricular systolic function is normal with an estimated ejection fraction in the range of 60-65% Moioh-vw-brpq mitral valve regurgitation. BP: / HR: Rhythm: Sinus MEASUREMENTS (Male / Female) Normal Values Technical Quality:Fair 2D ECHO LV Diastolic Diameter PLAX 4.1 cm 4.2 - 5.9 / 3.9 - 5.3 cm LV Systolic Diameter PLAX 2.9 cm IVS Diastolic Thickness 1.1 cm 0.6 - 1.0 / 0.6 - 0.9 cm LVPW Diastolic Thickness 1.1 cm 0.6 - 1.0 / 0.6 - 0.9 cm LV Relative Wall Thickness 0.5 RV Internal Dim ED PLAX 2.0 cm LVOT Diameter 2.0 cm Aortic Root Diameter 2.6 cm LA Systolic Diameter LX 2.9 cm 3.0 - 4.0 / 2.7 - 3.8 cm M-MODE AV Cusp Separation MM 1.7 cm DOPPLER AV Peak Velocity 123.0 cm/s AV Peak Gradient 6.1 mmHg AV Mean Gradient 3.0 mmHg AV Velocity Time Integral 21.0 cm LVOT Peak Velocity 102.0 cm/s LVOT Peak Gradient 4.2 mmHg LVOT Velocity Time Integral 16.9 cm AV Area Cont Eq vti 2.5 cm AV Area Cont Eq pk 2.6 cm Mitral E Point Velocity 87.4 cm/s Mitral A Point Velocity 88.8 cm/s Mitral E to A Ratio 1.0 LV E' Lateral Velocity 6.7 cm/s Mitral E to LV E' Lateral Ratio 13.0 LV E' Septal Velocity 6.2 cm/s Mitral E to LV E' Septal Ratio 14.0 PV Peak Velocity 81.2 cm/s PV Peak Gradient 2.6 mmHg FINDINGS LEFT VENTRICLE Normal left ventricular size. Mild concentric left ventricular hypertrophy. Normal LV systolic fx. RIGHT VENTRICLE Normal right ventricular size and systolic function. LEFT ATRIUM The left atrial size is normal. RIGHT ATRIUM The right atrial size is normal. ATRIAL SEPTUM No atrial level shunt is demonstrated by color flow Doppler interrogation. AORTA The aortic root and proximal ascending aorta are normal in size on limited imaging. MITRAL VALVE Ryjhd-tz-fmst mitral valve regurgitation. AORTIC VALVE No aortic valve stenosis or regurgitation. Joanne Casey MD, FACC (Electronically Signed) Final Date:10 January 2018 16:54
[2018-01-10] MEDS: ATORVASTATIN 80 MG TAB PO SCH (20:19)
[2018-01-11] VITALS (18 sets, daily range): BP systolic 135–146; BP diastolic 76–84; PULSE 67–85; RESP 16; TEMP 97.8–98.4; O2SAT 94–97
[2018-01-11 05:40] LABS: HEMOGLOBIN 14.4 GM/DL (13.0-17.0); MEAN CELL VOLUME 92.2 FL (80.0-100.0); MEAN CORPUSCULAR HEMOGLOBIN 31.6 PG (27.0-34.0); MEAN CORPUSCULAR HGB CONC 34.3 % (32.0-36.0); RED BLOOD COUNT 4.56 MIL/MM3 (4.50-5.90); WHITE BLOOD COUNT 10.1 TH/MM3 (4.0-11.0)
[2018-01-11 05:41] LABS: AUTOMATED NEUTROPHIL # 6.6 TH/MM3 (1.8-7.7); BASOPHIL # 0.1 TH/MM3 (0-0.2); BASOPHIL % 0.7 % (0.0-2.0); EOSINOPHIL # 0.2 TH/MM3 (0-0.4); LYMPH % 20.9 % (9.0-44.0); LYMPHOCYTE # 2.1 TH/MM3 (1.0-4.8); MEAN PLATELET VOLUME 7.6 FL (7.0-11.0); MONO % 11.3 % (0.0-8.0); MONOCYTE # 1.1 TH/MM3 (0-0.9); NEUT % 65.1 % (16.0-70.0); PLATELET COUNT 271 TH/MM3 (150-450); RED CELL DISTRIBUTION WIDTH 12.9 % (11.6-17.2)
[2018-01-11 05:57] LABS: CALCIUM 8.7 MG/DL (8.5-10.1); CREATININE 0.78 MG/DL (0.60-1.30)
--- NOTE | 2018-01-11 07:00 | MB ---
cc: Clarence Gann DO DATE: 01/10/2018 REASON FOR CONSULTATION: Consideration of cardiac catheterization. HISTORY OF PRESENT ILLNESS: Deshawn Dunlap is a pleasant 67-year-old male who I see in the office and presented to [facility] due to chest pain. He was originally seen in the office and underwent stress testing around 2-3 months ago, which was read as negative. Apparently around 2-3 days ago, he started getting acute chest pressure in the afternoon. This started originally with activity and then started coming on at rest. Chest pain was substernal and radiating to both arms. This is more significant then when he was seen in the office a few months ago. Because of that, he came to the emergency room. Chest pain seemed to go away somewhat with aspirin and nitro paste en route to the emergency room. Over the weekend, he did have some further chest pain and was placed on a heparin drip, as well as a nitroglycerin drip. In seeing him, he is currently hemodynamically stable without chest pain on a heparin and nitroglycerin drip. PAST MEDICAL HISTORY: Coronary artery disease. PAST SURGICAL HISTORY: 1. Six stents placed (2007), unknown coronary anatomy. 2. Tonsillectomy as a child. ALLERGIES: NO KNOWN DRUG ALLERGIES. MEDICATIONS: 1. Aspirin 81 mg daily. 2. Plavix 75 mg daily. 3. Lipitor 80 mg every night. 4. Metoprolol tartrate 25 mg b.i.d. FAMILY HISTORY: Denies premature coronary artery disease or sudden cardiac within the family. SOCIAL HISTORY: The patient previously smoked 1 pack a day for 39 years, quitting in 2007. Denies alcohol or drug abuse. REVIEW OF SYSTEMS: Fourteen systems were reviewed including osteopathic pertinent positives and negatives as above, otherwise negative. PHYSICAL EXAMINATION: VITAL SIGNS: Temperature 98.1, heart rate 80, blood pressure 143/85, respirations 18, pulse oximetry 95% on room air. GENERAL: The patient appears well, in no acute distress, alert, awake and oriented x 3. HEENT: Extraocular muscles intact. Mucous membranes moist. NECK: Supple. No JVD at 45 degrees. No carotid bruits heard bilaterally. Carotid upstroke is brisk in nature. HEART: Regular rate and rhythm. Positive for and second heart sounds with no murmurs, gallops, or rubs. LUNGS: Clear to auscultation bilaterally. No wheezes, rales or rhonchi. ABDOMEN: Soft, nontender, nondistended. No organomegaly noted. EXTREMITIES: Show no clubbing, cyanosis or edema. Femoral and distal pulses are intact bilaterally. NEUROLOGIC: No focal deficits. SKIN: Warm, dry and intact. OSTEOPATHIC: No kyphoscoliosis, lordosis or paraspinal tender points. LABORATORY DATA: Hemoglobin 15.0, hematocrit 43.1, platelets 285. Potassium 4.0, BUN 9, creatinine 0.86, troponin 0.18. Electrocardiogram (01/08/2018 at 0135): Sinus rhythm, nonspecific ST-T wave changes. IMPRESSIONS: 1. Non-ST elevation myocardial infarction. 2. Chest pain concerning for coronary insufficiency. 3. History of coronary artery disease with 6 stents placed to unknown coronary anatomy. RECOMMENDATIONS: 1. Mr. Dunlap presented with chest pain and was found to have an elevated troponin. Because of this, he will be recommended cardiac catheterization. 2. Risks, benefits, and alternatives have been explained to him and he consented as such. 3. He will continue on heparin and nitroglycerin drip until the time of his cardiac catheterization. 4. We will check a 2-D echo to look at his overall left ventricular function, cardiac structure and possible valvopathies. 5. Further recommendations will be made based on the hospital course. Thank you for allowing me to see Deshawn Dunlap. If there are any questions, please do not hesitate to call. Clarence Gann, DO VGP/DL , 09:43 PM , 06:59 AM
--- NOTE | 2018-01-11 07:12 | MA ---
cc: Clarence Gann DO DATE: 01/10/2018 PROCEDURE: 1. Left heart catheterization, coronary angiogram, moderate sedation 45 minutes, Thanh drug-eluting stent (2.75 x 30) to in-stent restenosis of RCA. PREPROCEDURE DIAGNOSIS: Chest pain, coronary artery disease, NSTEMI. POSTPROCEDURE DIAGNOSIS: 1. Coronary artery disease/NSTEMI status post Thanh drug-eluting stent (2.75 x 30). 2. In-stent restenosis of RCA. CONTRAST USED: 150 mL. FLUOROSCOPY TIME: 8.4 minutes. ANESTHESIA: Moderate sedation 45 minutes. FRAILTY SCORE: 3. ESTIMATED BLOOD LOSS: 10 mL. PROCEDURAL SUMMARY: Deshawn Dunlap is a pleasant 67-year-old male whom I see in the office and presented to [facility] Emergency Room due to chest pain. He previously underwent a stress test which was felt to be negative, but he showed up to the emergency room complaining of typical angina and was found to have an elevated troponin. Because of the study, he was recommended cardiac catheterization. Risks, benefits and alternatives were explained to him and he consented as such. He was brought to the lab and prepped in the usual sterile fashion. The right radial artery was accessed using modified Seldinger technique and placement of a 5/6 Romanian slender sheath. This was easily aspirated and flushed. A JL4 was advanced over a J-wire to the ascending aorta and across the aortic valve for measurement of left ventricular pressure. A JR4 was used for selective angiography of the right coronary artery system. This was exchanged out for a JL3.5, which was used for selective angiography of the left coronary artery system. JL3.5 was removed over a J-wire. Please see notes below for intervention. FINDINGS: Left main: A normal-sized vessel with adequate reflux. It bifurcates into an LAD and circumflex. LAD: Normal-sized vessel with mild luminal irregularity throughout the proximal portion. It appears to have at least 1 stent throughout the proximal to mid portion, which has no mild in-stent restenosis. Distal to this, the mid LAD has 30-40% disease. He does have one diagonal that comes off in the middle of the stent and appears that they jailed the diagonal as there is 95% stenosis of an overall small vessel. Left circumflex: A moderate size vessel with adequate reflux. It appears to have 1-2 stents in the mid portion, which are patent with 20% in-stent restenosis. Distally it supplies a large obtuse marginal with no significant disease. It does appear that there is a second obtuse marginal, but there is ostial 90% disease in a vessel that is maybe 1 mm. RCA: Anterior takeoff. Overall, normal vessel with stenting throughout the proximal and mid portion. Stent in the proximal to mid portion appears to have tandem lesions of in-stent restenosis of 90%. Distally, it supplies a PDA as well as a posterolateral branch. LVEDP 10. INTERVENTION: Due to the patient's chest pain, his elevated troponin and significance of disease, it was felt reasonable to intervene on these lesions. An AR-2 guide was advanced into a wedge position. Heparin was given as an anticoagulant. A BMW wire was advanced into the distal posterolateral branch. A compliant balloon (2.5 x 15) was used to predilate the lesions. An Davenport drug-eluting stent (2.75 x 30) was then placed over above the lesion and inflated. The distal portion of the stent was postdilated with a noncompliant balloon (2.75 x 15). The proximal portion was intervened on with a noncompliant balloon (3 x 12). The patient was given Plavix as he missed his morning dose. Final angiogram shows a well-opposed stent with no perforations or dissection and normal flow distally. INTERVENTIONAL DATA: Vessel proximal RCA, lesion length, 28 pre-CEE 3, post-CEE 3 post-stenosis 0. IMPRESSIONS: 1. Chest pain concerning for coronary insufficiency. 2. Foh-LD-stdvwtjwd myocardial infarction. 3. Coronary artery disease, status post Davenport drug-eluting stent (2.75 x 30). Two in-stent restenosis of RCA. RECOMMENDATIONS: 1. Mr. Dunlap underwent PCI for his NSTEMI and for this, he will be placed on his aspirin, Plavix, beta remington and statin therapy. 2. We will attempt to add MAEGAN inhibitor therapy to his overall regimen. 3. He will continue on aspirin indefinitely and Plavix for at least 12 months. 4. Further recommendations will be made based on the hospital course. We will plan on checking an echocardiogram before the morning and if stable, plan on discharging him home. Thank you for allowing me to see Deshawn Dunlap. If there are questions, please do not hesitate to call. Clarence Gann DO VGP/WAYLON , 09:54 PM , 07:10 AM PING
[2018-01-11] MEDS ORDERED: LISI-519 PO (08:25)
[2018-01-11] MEDS: ASPIRIN EC 81 MG TABEC PO SCH (08:27)
[2018-01-11] MEDS: METOPROLOL TARTRATE 25 MG TAB PO SCH (08:27)
[2018-01-11] MEDS: SODIUM CHLORIDE 0.9% FLUSH 10 ML FLUSH IV FLUSH SCH (08:27)
--- NOTE | 2018-01-11 08:27 | HHI.DCPOC ---
Discharge Care Plan Diagnosis: (1) ACS (acute coronary syndrome) (2) CAD (coronary artery disease) Goals to Promote Your Health * To prevent worsening of your condition and complications * To maintain your health at the optimal level Directions to Meet Your Goals Take your medications as prescribed Follow your dietary instruction Follow activity as directed Keep your appointments as scheduled Take your immunizations and boosters as scheduled If your symptoms worsen call your PCP, if no PCP go to Urgent Care Center or Emergency Room Smoking is Dangerous to Your Health. Avoid second hand smoke Call the 24-hour hour crisis hotline for domestic abuse at Iggy Calvin MD R2 Jan 11, 2018 08:27
[2018-01-11] MEDS: DOCUSATE SODIUM 50 MG/SENNA 8.6 MG TAB PO SCH (08:28)
--- NOTE | 2018-01-11 08:39 | HHI.FPPN ---
Subjective Remarks 67 yo male with CAD admitted with NSTEMI now seen for follow up. Feeling great after catheterization yesterday. No chest pains or breathing trouble. (Iggy Calvin MD R2) Objective Vitals Vital Signs Date Time Temp Pulse Resp B/P (MAP) Pulse Ox O2 Delivery O2 Flow Rate FiO2 01/11/18 07:10 97.8 75 16 146/76 (99) 97 01/11/18 06:06 71 01/11/18 05:26 77 01/11/18 05:25 98.1 71 141/84 (103) 95 01/11/18 04:32 79 01/11/18 03:21 83 01/11/18 02:36 67 01/11/18 01:02 68 01/11/18 00:10 98.4 85 135/82 (99) 95 01/11/18 00:09 77 01/10/18 23:00 85 01/10/18 22:40 73 01/10/18 22:16 21 01/10/18 21:05 83 01/10/18 20:21 85 01/10/18 19:55 98.9 92 178/85 (116) 98 01/10/18 19:10 95 01/10/18 18:06 90 01/10/18 17:00 90 01/10/18 16:00 82 01/10/18 15:09 83 01/10/18 15:09 98.2 84 18 139/74 (95) 95 01/10/18 14:47 18 01/10/18 14:02 82 01/10/18 13:11 68 01/10/18 11:29 98.0 82 18 140/83 (102) 95 01/10/18 11:29 73 01/10/18 10:14 77 01/10/18 09:49 95 21 01/10/18 09:20 80 I/O 01/10/18 01/10/18 01/10/18 01/11/18 01/11/18 01/11/18 07:00 15:00 23:00 07:00 15:00 23:00 Intake Total 320 ml 600 ml 480 ml Output Total 600 ml 550 ml 950 ml Balance -280 ml 50 ml -470 ml Intake Oral 320 ml 600 ml 480 ml Output Urine Total 600 ml 550 ml 950 ml # Bowel Movements 2 (Iggy Calvin MD R2) Result Diagram: 01/11/18 0350 01/11/18 0350 Imaging Last Impressions Chest X-Ray 01/07/18 1657 Signed Impressions: CONCLUSION: No acute cardiopulmonary process. Objective Remarks CONSTITUTIONAL/GEN: Overweight white gentleman no acute distress. LUNGS: clear A-P, respiratory effort is normal. CARDIOVASCULAR: NRRR without murmur or gallop. GI/ABD: Soft, no distention. NEURO: Grossly non-focal SKIN: color normal, no rashes noted. MUSC: Extremities are normal in appearance, no edema PSYCH/MENTAL STATUS: Alert, cooperative, conversant. Procedures Cardiac catheterization 01/10/18 Medications and IVs Current Medications Medications (Trade) Dose Ordered Sig/Shira Route Start Time Stop Time Status Last Admin (NS Flush) 2 ml UNSCH PRN IV FLUSH 01/07/18 20:15 (NS Flush) 2 ml BID IV FLUSH 01/07/18 21:00 01/11/18 08:27 (Tylenol) 650 mg Q4H PRN PO 01/07/18 20:15 (Narcan Inj) 0.4 mg UNSCH PRN IV PUSH 01/07/18 20:15 (Rivka-Colace) 1 tab BID PO 01/07/18 21:00 01/10/18 08:21 (Milk Of Magnesia Liq) 30 ml Q12H PRN PO 01/07/18 20:15 (Senokot) 17.2 mg Q12H PRN PO 01/07/18 20:15 (Dulcolax Supp) 10 mg DAILY PRN RECTAL 01/07/18 20:15 (Lactulose Liq) 30 ml DAILY PRN PO 01/07/18 20:15 (Morphine Inj) 4 mg Q3H PRN IV PUSH 01/07/18 20:30 01/09/18 08:27 (Lipitor) 80 mg HS PO 01/07/18 21:00 01/10/18 20:19 (Lopressor) 25 mg BID PO 01/07/18 21:00 01/11/18 08:27 (Ecotrin Ec) 81 mg DAILY PO 01/08/18 09:00 01/11/18 08:27 Nitroglycerin/ Dextrose 250 ml @ 1.5 mls/hr TITRATE PRN IV 01/09/18 09:45 01/09/18 10:10 (Zofran Inj) 4 mg Q6H PRN IVP 01/10/18 12:45 (Prinivil) 5 mg DAILY PO 01/11/18 09:00 01/11/18 08:27 (Plavix) 75 mg DAILY PO 01/11/18 09:00 01/11/18 08:27 (Iggy Calvin MD R2) A/P Assessment and Plan 67 yo with h/o CAD presenting with: (Iggy Calvin MD R2) Attending Attestation Case reviewed and discussed with the resident team. Agree with plan of care as discussed with me and documented in the resident note. (Ok Chand MD) Problem List: (1) ACS (acute coronary syndrome) ICD Codes: I24.9 - Acute ischemic heart disease, unspecified Plan: With troponin elevation, likely NSTEMI Cardiac cath impressions below 1. Chest pain concerning for coronary insufficiency. 2. Uid-BT-rbyddnnio myocardial infarction. 3. Coronary artery disease, status post Purcell drug-eluting stent (2.75 x 30) . Two in-stent restenosis of RCA. Echo with EF 60-65%, mild concentric LVH History of 12/26 and previous catheterization (2009), had typical angina -Cardiology consulted, appreciate recs (follows with [facility]) -S/p cath 01/10 -Continue home ASA, Plavix, BB, statin -Add ACEi -To reassess patient today prior to discharge (2) CAD (coronary artery disease) ICD Codes: I25.10 - Atherosclerotic heart disease of [place] coronary artery without angina pectoris Status: Chronic Plan: See above plan (3) FEN/PPX Plan: Fluids: PO only Elecs: Replete PRN Nutrition: Heart healthy diet Dispo: Home today once cleared by cardiology (Iggy Calvin MD R2) Problem Qualifiers (1) CAD (coronary artery disease): Qualified Codes: I25.110 - Atherosclerotic heart disease of [place] coronary artery with unstable angina pectoris Iggy Calvin MD R2 Jan 11, 2018 08:39 Ok Chand MD Jan 12, 2018 17:02
[2018-01-11] MEDS ORDERED: CLOPIDOGREL 75 MG TAB PO SCH (09:00)
[2018-01-11] MEDS ORDERED: LISINOPRIL 5 MG TAB PO SCH (09:00)
--- NOTE | 2018-01-11 12:11 | PD.CARD.PN ---
Subjective Subjective Remarks Doing well No complaints Objective Medications Current Medications Medications (Trade) Dose Ordered Sig/Shira Route Start Time Stop Time Status Last Admin (NS Flush) 2 ml UNSCH PRN IV FLUSH 01/07/18 20:15 (NS Flush) 2 ml BID IV FLUSH 01/07/18 21:00 01/11/18 08:27 (Tylenol) 650 mg Q4H PRN PO 01/07/18 20:15 (Narcan Inj) 0.4 mg UNSCH PRN IV PUSH 01/07/18 20:15 (Rivka-Colace) 1 tab BID PO 01/07/18 21:00 01/10/18 08:21 (Milk Of Magnesia Liq) 30 ml Q12H PRN PO 01/07/18 20:15 (Senokot) 17.2 mg Q12H PRN PO 01/07/18 20:15 (Dulcolax Supp) 10 mg DAILY PRN RECTAL 01/07/18 20:15 (Lactulose Liq) 30 ml DAILY PRN PO 01/07/18 20:15 (Morphine Inj) 4 mg Q3H PRN IV PUSH 01/07/18 20:30 01/09/18 08:27 (Lipitor) 80 mg HS PO 01/07/18 21:00 01/10/18 20:19 (Lopressor) 25 mg BID PO 01/07/18 21:00 01/11/18 08:27 (Ecotrin Ec) 81 mg DAILY PO 01/08/18 09:00 01/11/18 08:27 Nitroglycerin/ Dextrose 250 ml @ 1.5 mls/hr TITRATE PRN IV 01/09/18 09:45 01/09/18 10:10 (Zofran Inj) 4 mg Q6H PRN IVP 01/10/18 12:45 (Prinivil) 5 mg DAILY PO 01/11/18 09:00 01/11/18 08:27 (Plavix) 75 mg DAILY PO 01/11/18 09:00 01/11/18 08:27 Vital Signs / I&O Vital Signs Date Time Temp Pulse Resp B/P (MAP) Pulse Ox O2 Delivery O2 Flow Rate FiO2 01/11/18 12:00 77 01/11/18 11:12 98.1 71 16 140/82 (101) 95 01/11/18 11:00 70 01/11/18 10:00 75 01/11/18 09:25 94 21 01/11/18 09:00 78 01/11/18 08:00 70 01/11/18 07:10 97.8 75 16 146/76 (99) 97 01/11/18 07:00 72 01/11/18 06:06 71 01/11/18 05:26 77 01/11/18 05:25 98.1 71 141/84 (103) 95 01/11/18 04:32 79 01/11/18 03:21 83 01/11/18 02:36 67 01/11/18 01:02 68 01/11/18 00:10 98.4 85 135/82 (99) 95 01/11/18 00:09 77 01/10/18 23:00 85 01/10/18 22:40 73 01/10/18 22:16 21 01/10/18 21:05 83 01/10/18 20:21 85 01/10/18 19:55 98.9 92 178/85 (116) 98 01/10/18 19:10 95 01/10/18 18:06 90 01/10/18 17:00 90 01/10/18 16:00 82 01/10/18 15:09 83 01/10/18 15:09 98.2 84 18 139/74 (95) 95 01/10/18 14:47 18 01/10/18 14:02 82 01/10/18 13:11 68 I/O 01/10/18 01/10/18 01/10/18 01/11/18 01/11/18 01/11/18 07:00 15:00 23:00 07:00 15:00 23:00 Intake Total 320 ml 600 ml 480 ml Output Total 600 ml 550 ml 950 ml Balance -280 ml 50 ml -470 ml Intake Oral 320 ml 600 ml 480 ml Output Urine Total 600 ml 550 ml 950 ml # Bowel Movements 2 Physical Exam GENERAL: NAD, AAOx3 SKIN: Warm and dry. HEAD: Atraumatic. Normocephalic. EYES: Pupils equal and round. No scleral icterus. No injection or drainage. ENT: No nasal bleeding or discharge. Mucous membranes pink and moist. NECK: Trachea midline. No JVD. CARDIOVASCULAR: Regular rate and rhythm. RESPIRATORY: No accessory muscle use. Clear to auscultation. Breath sounds equal bilaterally. GASTROINTESTINAL: Abdomen soft, non-tender, nondistended. Hepatic and splenic margins not palpable. MUSCULOSKELETAL: Extremities without clubbing, cyanosis, or edema. No obvious deformities. Right radial no hematoma, neurovascularly intact NEUROLOGICAL: Awake and alert. No obvious cranial nerve deficits. Motor grossly within normal limits. Five out of 5 muscle strength in the arms and legs. Normal speech. PSYCHIATRIC: Appropriate mood and affect; insight and judgment normal. Laboratory Laboratory Tests Test 01/11/18 03:50 White Blood Count 10.1 TH/MM3 Red Blood Count 4.56 MIL/MM3 Hemoglobin 14.4 GM/DL Hematocrit 42.0 % Mean Corpuscular Volume 92.2 FL Mean Corpuscular Hemoglobin 31.6 PG Mean Corpuscular Hemoglobin Concent 34.3 % Red Cell Distribution Width 12.9 % Platelet Count 271 TH/MM3 Mean Platelet Volume 7.6 FL Neutrophils (%) (Auto) 65.1 % Lymphocytes (%) (Auto) 20.9 % Monocytes (%) (Auto) 11.3 % Eosinophils (%) (Auto) 2.0 % Basophils (%) (Auto) 0.7 % Neutrophils # (Auto) 6.6 TH/MM3 Lymphocytes # (Auto) 2.1 TH/MM3 Monocytes # (Auto) 1.1 TH/MM3 Eosinophils # (Auto) 0.2 TH/MM3 Basophils # (Auto) 0.1 TH/MM3 CBC Comment DIFF FINAL Differential Comment Blood Urea Nitrogen 9 MG/DL Creatinine 0.78 MG/DL Random Glucose 94 MG/DL Calcium Level 8.7 MG/DL Sodium Level 140 MEQ/L Potassium Level 3.8 MEQ/L Chloride Level 108 MEQ/L Carbon Dioxide Level 24.0 MEQ/L Anion Gap 8 MEQ/L Estimat Glomerular Filtration Rate 100 ML/MIN Assessment and Plan Problem List: (1) Chest pain ICD Codes: R07.9 - Chest pain, unspecified Status: Resolved (2) CAD (coronary artery disease) ICD Codes: I25.10 - Atherosclerotic heart disease of [place] coronary artery without angina pectoris Status: Chronic (3) NSTEMI (non-ST elevated myocardial infarction) ICD Codes: I21.4 - Non-ST elevation (NSTEMI) myocardial infarction (4) ACS (acute coronary syndrome) ICD Codes: I24.9 - Acute ischemic heart disease, unspecified Assessment and Plan 1) CAD/NSTEMI/CP s/p SPENSER to RCA ASA/Plavix Con't BB/Statin Start MAEGAN-I 2) EF 60-65% 3) Follow up with me in 4-6 weeks 4) Cardiovascularly stable for discharge Problem Qualifiers (1) Chest pain: Qualified Codes: I20.0 - Unstable angina (2) CAD (coronary artery disease): Qualified Codes: I25.110 - Atherosclerotic heart disease of [place] coronary artery with unstable angina pectoris Clarence Gann DO Jan 11, 2018 12:11
--- NOTE | 2018-01-13 13:55 | HHI.DS ---
Discharge Summary Admission Date Jan 07, 2018 at 19:19 Discharge Date: Jan 11, 2018 Admitting Diagnosis Chest pain (1) ACS (acute coronary syndrome) Diagnosis: Principal ICD Codes: I24.9 - Acute ischemic heart disease, unspecified (2) CAD (coronary artery disease) Diagnosis: Principal ICD Codes: I25.10 - Atherosclerotic heart disease of [place] coronary artery without angina pectoris Status: Chronic Consult[facility] Cardiology - Dr. Gann Procedures Cardiac catheterization 01/10/18 Brief History 67-year-old male with past medical history of coronary artery disease status post stenting 6 in 2007 presenting with a 2 day history of chest pressure acutely increasing earlier this afternoon. Chest pressure is substernal, severe , radiating to the bilateral arms. Resolved with aspirin and Nitropaste given on route to ER and in the emergency room. No shortness of breath, lower extremity edema. Other than chest pressure, which is now resolved, he feels his usual state of health. CBC/BMP: 01/11/18 0350 01/11/18 0350 Significant Findings Laboratory Tests Test 01/11/18 03:50 Monocytes (%) (Auto) 11.3 % (0.0-8.0) Monocytes # (Auto) 1.1 TH/MM3 (0-0.9) Chloride Level 108 MEQ/L (98-107) Imaging Last Impressions Chest X-Ray 01/07/18 1657 Signed Impressions: CONCLUSION: No acute cardiopulmonary process. PE at Discharge CONSTITUTIONAL/GEN: Overweight white gentleman no acute distress. LUNGS: clear A-P, respiratory effort is normal. CARDIOVASCULAR: NRRR without murmur or gallop. GI/ABD: Soft, no distention. NEURO: Grossly non-focal SKIN: color normal, no rashes noted. MUSC: Extremities are normal in appearance, no edema PSYCH/MENTAL STATUS: Alert, cooperative, conversant. Hospital Course 67 yo with history of CAD and stenting x6 admitted for cardiac chest pain, slight troponin elevation, no ECG changes. Diagnosed with NSTEMI, managed medically with heparin and nitro drip until catheterization performed. Cath performed during which time two in-stent restenosis of RCA was done. Patient was discharged morning after cath with lisinopril added to medication regimen. Pt Condition on Discharge: Good Discharge Disposition: Discharge Home Discharge Instructions DIET: Follow Instructions for: As Tolerated, No Restrictions Activities you can perform: Regular-No Restrictions Follow up Referrals: Cardiology - 1 Month with Clarence Gann DO PCP Follow-up - 1 Month New Medications: Lisinopril (Lisinopril) 5 Mg Tab 5 MG PO DAILY, #30 TAB Continued Medications: Aspirin DR (Aspirin DR) 81 Mg Tabdr 81 MG PO DAILY, TAB 0 Refills Atorvastatin (Lipitor) 80 Mg Tab 80 MG PO HS for Cholesterol Management, #30 TAB 0 Refills Clopidogrel (Plavix) 75 Mg Tab 75 MG PO DAILY for Blood Clot Prevention, #30 TAB 0 Refills Metoprolol Tartrate (Metoprolol Tartrate) 25 Mg Tab 25 MG PO BID, #60 TAB 0 Refills Iggy Calvin MD R2 Jan 13, 2018 13:55
== END 2018-01-11 12:28 | disposition home or self-care (01) | DRG 247 ==
LOC: NEPC 16:44 → NEDH 19:19 → HCPC 23:50
PROVIDERS: ADMIT Family Medicine; ATTEND Family Medicine
PROC: 4A023N7 Measurement of Cardiac Sampling and Pressure, Left Heart, Percutaneous Approach (ICD-10-PCS; 2018-01-10)
PROC: B2111ZZ Fluoroscopy of Multiple Coronary Arteries using Low Osmolar Contrast (ICD-10-PCS; 2018-01-10)
PROC: B2151ZZ Fluoroscopy of Left Heart using Low Osmolar Contrast (ICD-10-PCS; 2018-01-10)
PROC: 027034Z Dilation of Coronary Artery, One Artery with Drug-eluting Intraluminal Device, Percutaneous Approach (ICD-10-PCS; principal; 2018-01-10 11:15)
DX: I21.4 Non-ST elevation (NSTEMI) myocardial infarction (principal); T82.855A Stenosis of coronary artery stent, initial encounter; I25.110 Atherosclerotic heart disease of native coronary artery with unstable angina pectoris; I10 Essential (primary) hypertension; E78.00 Pure hypercholesterolemia, unspecified; E78.5 Hyperlipidemia, unspecified; Y83.1 Surgical operation with implant of artificial internal device as the cause of abnormal reaction of the patient, or of later complication, without mention of misadventure at the time of the procedure; Z87.891 Personal history of nicotine dependence; Z79.82 Long term (current) use of aspirin; Z79.02 Long term (current) use of antithrombotics/antiplatelets; Z23 Encounter for immunization
CPT/HCPCS: 71045; 80048; 82550; 82947; 84484; 85002; 85025; 85730; 92928; 93005; 93306; 93458; 99152; 99153; 99285; C1725; C1769; C1874; C1887; C1893; J1644; J2250; J2270; J3010; J7030; Q9967